=== PATIENT | male | born 1960 | race Caucasian/White ===

== ENCOUNTER 2016-06-03 12:02 | Emergency (ER) | payer BC ==
[~2016-06-03] VITALS: Ht 177.8 cm; Wt 70.0 kg
[~2016-06-03 12:02] MED LIST: AMOXICILLIN500 MG PO; AUGMENTIN500TAB PO; FLAXSEED OIL1000 MG PO; FLEXERIL PO; FLEXERIL5 MG PO; MECLIZINE25 MG PO; MEDDOSEPAK PO; MULTI VIT PO; NO HOME MEDS; PERCOCET 5/325M1 TAB PO; PHENERGAN25 MG/TAB PO; TESSALON PER100 MG PO; VITAMIN B-12500 MCG PO; ZPAK PO
[2016-06-03 13:12] LABS: HEMATOCRIT 46.5 % (39.0-50.0); HEMOGLOBIN 15.6 g/dl (14.0-18.0); IMMATURE GRANULOCYTES 1.3 % (0.0-1.0); MEAN CELL VOLUME 87.4 fL CALC (80.0-100.0); MEAN CORPUSCULAR HGB 29.3 pG CALC (26.0-32.0); MEAN CORPUSCULAR HGB CONC 33.5 g/L CALC (32.0-36.0); NEUT# 5.91 thou/uL (1.82-7.42); RED BLOOD COUNT 5.32 mill/uL (4.70-6.10); RED CELL DISTRI WIDTH 13.7 % (11.5-15.5)
[2016-06-03 13:27] LABS: PROTHROMBIN TIME 10.5 SECONDS (9.0-12.5)
[2016-06-03 13:29] LABS: ALBUMIN 5.2 g/dL (3.2-5.0); ALKALINE PHOSPHATASE 99 u/l (38-126); ANION GAP 18 (6-22 (CALC)); BILIRUBIN, TOTAL 0.5 mg/dL (0.0-1.4); BUN 12 mg/dL (9-20); BUN/CREATININE RATIO 17 (12-20 (CALC)); CALCIUM 9.7 mg/dL (8.4-10.2); CARBON DIOXIDE 24 mmol/l (22-30); CHLORIDE 106 mmol/l (95-108); CREATININE 0.7 mg/dL (0.7-1.3); GFR > 60 ML/MIN (>=60 (CALC)); GFR FOR AFR.AMER. > 60 ML/MIN (>=60 (CALC)); GLUCOSE 90 mg/dL (75-110); POTASSIUM 4.5 mmol/l (3.5-5.1); SGOT/AST 47 u/l (17-59); SGPT/ALT 54 u/l (21-72); SODIUM 144 mmol/l (137-146); TOTAL PROTEIN 8.5 g/dL (6.3-8.2)
[2016-06-03 14:25] LABS: URINE BILIRUBIN - DIPSTICK NEGATIVE (NEGATIVE); URINE BLOOD DIPSTICK NEGATIVE (NEGATIVE); URINE CLARITY CLEAR; URINE COLOR YELLOW; URINE GLUCOSE - DIPSTICK NEGATIVE (NEGATIVE); URINE KETONE NEGATIVE (NEGATIVE); URINE LEUK ESTERASE NEGATIVE (NEGATIVE); URINE NITRITE - DIPSTICK NEGATIVE (Negative); URINE PH 6.5 (4.5-8.0); URINE PROTEIN - DIPSTICK NEGATIVE (NEG-TRACE); URINE SPECIFIC GRAVITY 1.015; URINE UROBILINOGEN - DIPSTICK 0.2 E.U./dL (0.2)
[2016-06-03] MEDS ORDERED: FLEXERIL PO (17:05)
[2016-06-03] MEDS ORDERED: PERCOCET 5/325M1 TAB PO (17:05)
[2016-06-03 17:40] VITALS: BP 153/72
== END 2016-06-03 17:42 | disposition home or self-care (01) | DRG 923 ==
LOC: ED 12:02
PROVIDERS: Emergency Medicine
DX: T75.4XXA Electrocution, initial encounter (principal); S53.402A Unspecified sprain of left elbow, initial encounter; W86.0XXA Exposure to domestic wiring and appliances, initial encounter; Y92.000 Kitchen of unspecified non-institutional (private) residence as the place of occurrence of the external cause

== ENCOUNTER 2017-06-03 12:35 | Emergency (ER) | payer BC ==
[~2017-06-03] VITALS: Ht 177.8 cm; Wt 100.0 kg
[2017-06-03] MEDS ORDERED: CEPHALEXIN500 M1 PO (12:49)
[2017-06-03 13:14] VITALS: BP 131/92
== END 2017-06-03 13:23 | disposition home or self-care (01) | DRG 159 ==
LOC: ED 12:35
PROC: 0CQ0XZZ Repair Upper Lip, External Approach (ICD-10-PCS; principal; 2017-06-03)
DX: S01.511A Laceration without foreign body of lip, initial encounter (principal); W22.8XXA Striking against or struck by other objects, initial encounter; Y93.H2 Activity, gardening and landscaping; Y92.007 Garden or yard of unspecified non-institutional (private) residence as the place of occurrence of the external cause

== ENCOUNTER 2019-05-04 | Emergency (ER) | payer BC ==
[~2019-05-04] MED LIST changes: +CEPHALEXIN500 M1 PO
[2019-05-04 13:46] LABS: ALBUMIN 5.1 g/dL (3.2-5.0); ALKALINE PHOSPHATASE 88 u/l (38-126); ANION GAP 13 (6-22 (CALC)); BILIRUBIN, TOTAL 0.7 mg/dL (0.0-1.4); BUN 15 mg/dL (9-20); BUN/CREATININE RATIO 24 (12-20 (CALC)); CARBON DIOXIDE 27 mmol/l (22-30); CHLORIDE 103 mmol/l (95-108); CREATININE 0.6 mg/dL (0.7-1.3); GFR > 60 ML/MIN (>=60 (CALC)); GFR FOR AFR.AMER. > 60 ML/MIN (>=60 (CALC)); SGOT/AST 60 u/l (17-59); SODIUM 138 mmol/l (137-146); TOTAL PROTEIN 8.4 g/dL (6.3-8.2)
[2019-05-04 13:48] LABS: ACT PARTIAL THROMBO TIME 28.8 SECONDS (20.0-32.5); PROTHROMBIN TIME 10.7 SECONDS (9.0-12.5)
[2019-05-04 13:53] LABS: HEMATOCRIT 47.2 % (39.0-50.0); HEMOGLOBIN 15.5 g/dl (14.0-18.0); IMMATURE GRANULOCYTES 0.8 % (0.0-5.0); MEAN CELL VOLUME 88.9 fL CALC (80.0-100.0); MEAN CORPUSCULAR HGB 29.2 pG CALC (26.0-32.0); MEAN CORPUSCULAR HGB CONC 32.8 g/L CALC (32.0-36.0); NEUT# 6.99 thou/uL (1.82-7.42); RED BLOOD COUNT 5.31 mill/uL (4.70-6.10); RED CELL DISTRI WIDTH 13.9 % (11.5-15.5)
[2019-05-04 13:54] LABS: POTASSIUM 5.3 mmol/l (3.5-5.1)
[2019-11-11] MEDS ORDERED: FLEXERIL PO (10:39)
[2019-11-11] MEDS ORDERED: ZESTRIL10 M1 PO (10:39)
== END 2019-05-04 15:40 | disposition home or self-care (01) | DRG 305 ==
DX: I10 Essential (primary) hypertension (principal)